=== PATIENT | female | born 1990 | race African-American/Black ===

== ENCOUNTER 2022-05-11 14:38 | Emergency (ER) | payer MEDICAID ==
[~2022-05-11] VITALS: Ht 175.3 cm; Wt 108.2 kg
[~2022-05-11 14:38] MED LIST: PREN27TA7 OR
[2022-05-11 16:23] LABS: Urine Blood 1+ /uL (Negative); Urine Specific Gravity 1.027 (1.001-1.035)
[2022-05-11 18:50] VITALS: BP 110/61
== END 2022-05-11 19:09 | disposition home or self-care (01) ==
LOC: ER 14:38
DX: O20.0 Threatened abortion (principal); Z3A.08 8 weeks gestation of pregnancy
CPT/HCPCS: 36415; 81003; 81025; 84702

== ENCOUNTER → 2022-08-18 | Outpatient (CLI) | payer MEDICAID ==
[2022-08-18 11:23] LABS: Basophils # (auto) 0 10 ^3/uL (0-0.2); Basophils % (auto) 0.4 % (0.0-2.0); Eosinophils # (auto) 0.2 10 ^3/uL (0-0.8); Eosinophils % (auto) 2.1 % (0.0-7.0); Hematocrit 37.6 % (36.0-46.0); Hemoglobin 12.7 g/dL (12.2-16.2); Lymphocytes # (auto) 1.9 10 ^3/uL (0.4-5.4); Mean Corpuscular Hgb Conc. 33.9 g/dL (32.0-36.0); Mean Corpuscular Volume 88.6 fL (80.0-100.0); Monocytes # (auto) 0.6 10 ^3/uL (0-1.3); Monocytes % (auto) 5.8 % (0.0-12.0); Neutrophils # (auto) 7.4 10 ^3/uL (1.6-8.6); Neutrophils % (auto) 72.7 % (37.0-80.0); Red Blood Cells 4.24 10^6/uL (4.0-5.20); Red Cell Distribution Width 14.5 % (11.8-14.3); White Blood Cell 10.1 10^3/uL (4.4-10.8)
[2022-08-18 12:14] LABS: Albumin 2.9 g/dL (3.4-5.0); BUN/Creatinine Ratio 8.5 (10.0-20.0); Bilirubin, Total 0.3 mg/dL (0.2-1.0); Calcium 8.6 mg/dL (8.5-10.1); Potassium 3.8 mmol/L (3.5-5.1); Total Protein 6.6 g/dL (6.4-8.2)
== END | disposition home or self-care (01) ==
LOC: LAB 10:34
PROVIDERS: ATTEND Obstetrics & Gynecology
DX: O99.810 Abnormal glucose complicating pregnancy (principal); Z3A.00 Weeks of gestation of pregnancy not specified
CPT/HCPCS: 36415; 80053; 85025

== ENCOUNTER → 2022-08-25 | Outpatient (CLI) | payer MEDICAID | END | disposition home or self-care (01) | LOC: LAB 08:39 | PROVIDERS: ATTEND Obstetrics & Gynecology | DX: O99.810 Abnormal glucose complicating pregnancy (principal); Z3A.00 Weeks of gestation of pregnancy not specified | CPT/HCPCS: 82951 ==

== ENCOUNTER 2022-09-22 13:24 | Observation (INO) | payer MEDICAID ==
[2022-09-22] MEDS ORDERED: METF-370 PO (15:14)
== END 2022-09-22 15:22 | disposition home or self-care (01) ==
LOC: LDRP 13:24 → UNDOADMOB 13:24 → LDRP 13:28
PROVIDERS: ADMIT Obstetrics & Gynecology; ATTEND Obstetrics & Gynecology
DX: O60.02 Preterm labor without delivery, second trimester (principal); O24.419 Gestational diabetes mellitus in pregnancy, unspecified control; O26.892 Other specified pregnancy related conditions, second trimester; O62.9 Abnormality of forces of labor, unspecified; H53.8 Other visual disturbances; Z3A.26 26 weeks gestation of pregnancy
CPT/HCPCS: 59025; 76818; 81002; 82948; 82962; 94760; G0378

== ENCOUNTER 2022-09-25 23:28 | Observation (INO) | payer MEDICAID ==
[~2022-09-25] VITALS: Ht 175.3 cm; Wt 108.0 kg
[~2022-09-25 23:28] MED LIST changes: +METF-370 PO
[2022-09-26] MEDS ORDERED: BETAMETHASONE ACET (30mg/5ml) 5ml Vial 6mg/ml IM ONE
[2022-09-26] MEDS ORDERED: PROGSUP4 VA (00:45)
== END 2022-09-26 01:00 | disposition home or self-care (01) ==
LOC: LDRP 23:28
PROVIDERS: ADMIT Obstetrics & Gynecology; ATTEND Obstetrics & Gynecology
DX: O60.02 Preterm labor without delivery, second trimester (principal); O24.419 Gestational diabetes mellitus in pregnancy, unspecified control; Z3A.26 26 weeks gestation of pregnancy
CPT/HCPCS: 59025; 76805; 76817; 81002; 96372; G0378; J0702

== ENCOUNTER 2022-09-27 00:17 | Observation (INO) | payer MEDICAID ==
[~2022-09-27] VITALS: Ht 175.3 cm; Wt 108.9 kg
[~2022-09-27 00:17] MED LIST changes: +PROGSUP4 VA
[2022-09-27] MEDS ORDERED: BETAMETHASONE ACET (30mg/5ml) 5ml Vial 6mg/ml IM ONE (00:30)
== END 2022-09-27 01:30 | disposition home or self-care (01) ==
LOC: LDRP 00:17
PROVIDERS: ADMIT Obstetrics & Gynecology; ATTEND Obstetrics & Gynecology
DX: Z34.82 Encounter for supervision of other normal pregnancy, second trimester (principal); Z3A.27 27 weeks gestation of pregnancy; Z87.51 Personal history of pre-term labor
CPT/HCPCS: 59025; 81002; 82948; 82962; 94760; 96372; G0378

== ENCOUNTER 2022-09-28 07:50 | Observation (INO) | payer MEDICAID | END 2022-09-28 11:02 | disposition home or self-care (01) | LOC: LDRP 09:06 → UNDOADMOB 09:06 → LDRP 09:23 → UNDODISOB 11:02 | PROVIDERS: ADMIT Obstetrics & Gynecology; ATTEND Obstetrics & Gynecology | DX: O24.419 Gestational diabetes mellitus in pregnancy, unspecified control (principal); O60.02 Preterm labor without delivery, second trimester; O26.892 Other specified pregnancy related conditions, second trimester; N89.8 Other specified noninflammatory disorders of vagina; O26.872 Cervical shortening, second trimester; Z3A.27 27 weeks gestation of pregnancy | CPT/HCPCS: 59025; 76817; 76818; 81002; 82948; 82962; G0378 ==

== ENCOUNTER 2022-10-01 09:05 | Observation (INO) | payer MEDICAID | END 2022-10-01 11:22 | disposition home or self-care (01) | LOC: LDRP 09:05 → SUR 09:05 → UNDOADMOB 09:05 → EDSTATUS 09:34 → LDRP 09:40 → UNDODISOB 11:22 | PROVIDERS: ADMIT Obstetrics & Gynecology; ATTEND Obstetrics & Gynecology | DX: O60.02 Preterm labor without delivery, second trimester (principal); O26.872 Cervical shortening, second trimester; O24.419 Gestational diabetes mellitus in pregnancy, unspecified control; Z3A.27 27 weeks gestation of pregnancy | CPT/HCPCS: 59025; 76817; 76818; 81002; 82962; 94760; G0378 ==

== ENCOUNTER 2022-10-04 08:55 | Observation (INO) | payer MEDICAID ==
[2022-10-04] MEDS ORDERED: NITR-87 PO (10:28)
== END 2022-10-04 10:41 | disposition home or self-care (01) ==
LOC: LDRP 08:55 → UNDOADMOB 08:55 → LDRP 09:02 → UNDODISOB 10:41
PROVIDERS: ADMIT Obstetrics & Gynecology; ATTEND Obstetrics & Gynecology
DX: O26.873 Cervical shortening, third trimester (principal); O60.03 Preterm labor without delivery, third trimester; O24.419 Gestational diabetes mellitus in pregnancy, unspecified control; O99.333 Smoking (tobacco) complicating pregnancy, third trimester; F17.210 Nicotine dependence, cigarettes, uncomplicated; Z3A.28 28 weeks gestation of pregnancy
CPT/HCPCS: 59025; 76817; 76818; 81002; 82948; 82962; 94760; G0378

== ENCOUNTER 2022-10-08 10:05 | Observation (INO) | payer MEDICAID ==
[~2022-10-08 10:05] MED LIST changes: +NITR-87 PO
[2022-10-08] MEDS ORDERED: NIF10C PO (11:29)
== END 2022-10-08 11:44 | disposition home or self-care (01) ==
LOC: UNDOADMOB 10:05 → LDRP 10:05 → UNDODISOB 11:44
PROVIDERS: ADMIT Obstetrics & Gynecology; ATTEND Obstetrics & Gynecology
DX: O24.419 Gestational diabetes mellitus in pregnancy, unspecified control (principal); O60.03 Preterm labor without delivery, third trimester; O26.873 Cervical shortening, third trimester; Z3A.28 28 weeks gestation of pregnancy
CPT/HCPCS: 59025; 76817; 76818; 81002; 82948; 82962; G0378

== ENCOUNTER 2022-10-12 08:17 | Observation (INO) | payer MEDICAID ==
[~2022-10-12 08:17] MED LIST changes: +NIF10C PO
== END 2022-10-12 10:47 | disposition home or self-care (01) ==
LOC: LDRP 08:17 → UNDOADMOB 08:17 → LDRP 08:37 → UNDODISOB 10:47
PROVIDERS: ADMIT Obstetrics & Gynecology; ATTEND Obstetrics & Gynecology
DX: O24.419 Gestational diabetes mellitus in pregnancy, unspecified control (principal); O60.03 Preterm labor without delivery, third trimester; O26.873 Cervical shortening, third trimester; O99.333 Smoking (tobacco) complicating pregnancy, third trimester; F17.210 Nicotine dependence, cigarettes, uncomplicated; Z3A.29 29 weeks gestation of pregnancy
CPT/HCPCS: 59025; 76817; 76818; 81002; 82948; 82962; G0378

== ENCOUNTER 2022-10-15 12:35 | Observation (INO) | payer MEDICAID | END 2022-10-15 15:08 | disposition home or self-care (01) | LOC: UNDOADMOB 12:35 → LDRP 12:35 | PROVIDERS: ADMIT Obstetrics & Gynecology; ATTEND Obstetrics & Gynecology | DX: O24.419 Gestational diabetes mellitus in pregnancy, unspecified control (principal); O60.03 Preterm labor without delivery, third trimester; O26.873 Cervical shortening, third trimester; Z3A.29 29 weeks gestation of pregnancy | CPT/HCPCS: 59025; 76817; 76818; 81002; 82948; 82962; 94760; G0378 ==

== ENCOUNTER 2022-10-19 11:25 | Observation (INO) | payer MEDICAID | END 2022-10-19 13:52 | disposition home or self-care (01) | LOC: UNDOADMOB 11:25 → LDRP 11:25 | PROVIDERS: ADMIT Obstetrics & Gynecology; ATTEND Obstetrics & Gynecology | DX: O60.03 Preterm labor without delivery, third trimester (principal); O24.419 Gestational diabetes mellitus in pregnancy, unspecified control; O26.873 Cervical shortening, third trimester; Z3A.30 30 weeks gestation of pregnancy | CPT/HCPCS: 59025; 76817; 76818; 81002; 82948; 82962; G0378 ==

== ENCOUNTER 2022-10-26 09:02 | Observation (INO) | payer MEDICAID | END 2022-10-26 11:38 | disposition home or self-care (01) | LOC: UNDOADMOB 09:02 → LDRP 09:02 → UNDODISOB 11:38 | PROVIDERS: ADMIT Obstetrics & Gynecology; ATTEND Obstetrics & Gynecology | DX: O24.419 Gestational diabetes mellitus in pregnancy, unspecified control (principal); O62.9 Abnormality of forces of labor, unspecified; Z3A.31 31 weeks gestation of pregnancy; Z79.899 Other long term (current) drug therapy | CPT/HCPCS: 59025; 76818; 81002; 82948; 82962; 87086; 94760; G0378 ==

== ENCOUNTER 2022-10-29 14:05 | Observation (INO) | payer MEDICAID ==
[~2022-10-29 14:05] MED LIST changes: -NITR-87 PO
[2022-10-29] MEDS ORDERED: NIF10C PO (15:59)
== END 2022-10-29 16:26 | disposition home or self-care (01) ==
LOC: UNDOADMOB 14:05 → LDRP 14:05
PROVIDERS: ADMIT Obstetrics & Gynecology; ATTEND Obstetrics & Gynecology
DX: O24.419 Gestational diabetes mellitus in pregnancy, unspecified control (principal); O26.873 Cervical shortening, third trimester; O09.213 Supervision of pregnancy with history of pre-term labor, third trimester; O23.43 Unspecified infection of urinary tract in pregnancy, third trimester; O60.03 Preterm labor without delivery, third trimester; Z3A.31 31 weeks gestation of pregnancy
CPT/HCPCS: 59025; 76817; 76818; 81002; 82948; 82962; 94760; G0378